=== PATIENT | female | born 1980 | race Caucasian/White ===

== ENCOUNTER 2018-05-16 05:20 | Day surgery (SDC) | payer OTHER ==
[2018-05-15 12:07] LABS: BASOPHILS 0.3 % (0-2); EOSINOPHILS 1.9 % (0-7); HEMOGLOBIN 14.4 g/dL (12-16); IMMATURE GRANULOCYTES 0.2 % (0-5); LYMPHOCYTES 25.5 % (15-50); MCHC 34.3 g/dL (31.0-37.0); MCV 84.7 fL (80.0-100.0); MEAN PLATELET VOLUME 9.8 fL (7.4-10.4); MONOCYTES 5.4 % (2-11); NEUTROPHILS 66.7 % (40-80); PLATELET COUNT 286 10x3/uL (130-400); RBC 4.96 10x6/uL (4.00-5.40); RDW 11.9 % (11.5-14.5); WBC 10.7 10x3/uL (4.8-10.8)
[2018-05-15 12:31] LABS: ALBUMIN 3.1 g/dL (3.4-5.0); BILIRUBIN - TOTAL 0.19 mg/dL (0.2-1.3); CALCIUM 8.7 mg/dL (8.5-10.1); CARBON DIOXIDE 25.3 mmol/L (21.0-32.0); CREATININE - SERUM 0.9 mg/dL (0.6-1.3); POTASSIUM - SERUM 4.3 mmol/L (3.5-5.1); PROTEIN - SERUM 7.2 g/dL (6.4-8.2)
[~2018-05-16] VITALS: Ht 165.1 cm; Wt 99.5 kg
[~2018-05-16 05:20] MED LIST: POLY-VI-SOL W/I50 ML PO; PROPRANOLOL HCL20 MG PO; RED YEAST RICE600 MG PO; SYNTHROID25 MCG PO; TRI-LO-SPRINTEC PO; ZOLOFT50 MG PO
[2018-05-16 11:57] VITALS: BP 122/76
--- NOTE | 2018-05-16 12:00 | NUR ---
Received to room by stretcher from recovery room, pt awake and alert, she is able to move self over to bed without assistance. rates pain at 4/10, scd's bilat per orders and placed on pump. IV to left hand infusing at kvo. Abdomen soft to touch with lab incision noted to be clean and dry. VSS as charted on graphic. Family at bedside. call light in reach with side rails up x 2.
--- NOTE | 2018-05-16 12:12 | NUR ---
denies nausea, large ice water per request.
[2018-05-16 12:22] VITALS: BP 121/77
--- NOTE | 2018-05-16 12:36 | NUR ---
PT'S FAMILY MEMBER TO DESK STATING PT IS HURTING AND REQUESTING PAIN MEDICATION. THIS RN TO ROOM. PT RATING PAIN 7/10 "AT CATHETER", PT REQUESTING CATHETER OUT. PT STATES INCISIONAL PAIN IS 5/10 IN ABD, PRESSURE. FRANCES CATH EMPTIED AND NOTED TO HAVE 150ML CLEAR YELLOW URINE IN UROMETER. FRANCES CATH REMOVED PER BEVERLY VÁZQUEZ. PT ADMIN PRN TORADOL ORDERED. PT INSTRUCTED WILL ALLOW TORADOL TIME TO WORK AND WITH FRANCES CATH OUT, WILL REASSESS PAIN SHORTLY. PT VERBALIZES UNDERSTANDING, AND AGREES SHE DOES NOT WANT TO GET NAUSEATED TAKING STRONGER PAIN MEDS ON AN EMPTY STOMACH. PT FAMILY MEMBERS REMAIN AT BEDSIDE. SRUx2, CL IN REACH. WILL CONT TO MONITOR.
--- NOTE | 2018-05-16 14:38 | NUR ---
PT ABLE TO MOVE SELF TO SITTING UP ON SIDE OF BED WITH NO COMPLAINTS OF NAUSEA OR DIZZINESS. AMB TO BATHROOM AND ABLE TO VOID 400ML WITHOUT COMPLAINTS. LUISA CARE PER SELF WITH WARM WET WASH CLOTHS, LUISA PAD AND MESH PANTIES. BACK TO BED, RATES PAIN AT 6/10 AND ASKING FOR SOMETHING TO EAT. DIET ORDER PLACED AND DIETARY NOTIFIED.
--- NOTE | 2018-05-16 15:00 | NUR ---
DIET TRAY BROUGHT TO ROOM, LARGE CUP OF ICE PER REQEUST. DENIES ANY OTHER NEEDS AT THIS TIME.
--- NOTE | 2018-05-16 16:30 | NUR ---
PT REQUESTING TO D/C HOME, DENIES NAUSEA, RATES PAIN AT 2/10. VOIDED X 3 IN AMOUNTS GREATER THAN 200. DR MASON NOTIFIED FOR ORDERS.
--- NOTE | 2018-05-16 17:10 | NUR ---
DR MASON CALLS UNIT WITH D/C ORDERS, ALSO GIVES ORDER FOR NEUROTIN 300MG 1PO q8hrs x 3days, Mobic 15mg 1po daily and Ultram 50mg 1po every 4-6hrs prn pain. Pt to follow up in clinic as scheduled. Pharmacy choice verified, pt request [facility] [address] [place]. Saline lock removed from left hand, cath noted to be intact. She is amb to bathroom to change clothes.
[2018-05-16] MEDS ORDERED: NEURONTIN 300300 MG (17:19)
[2018-05-16] MEDS ORDERED: ULTRAM50 MG PO (17:20)
[2018-05-16] MEDS ORDERED: MOBIC7.5 MG PO (17:20)
--- NOTE | 2018-05-16 17:45 | NUR ---
Verbal and written discharge instructions gone over with no questions or concerns. Pt states understanding of s/s of infection and what she is to do. denies any questions. Scripts called to [facility] spoke with [facility]. Pt taken out to car by wheelchair home with family.
--- NOTE | 2018-05-23 07:46 | OP ---
PATIENT NAME: COSME CLARK MEDICAL RECORD: [id number] :78 LOCATION:D.OPS ADMISSION DATE: SURGEON: KATTY MASON MD DATE OF OPERATION: 05/16/2018 PREOPERATIVE DIAGNOSES: 1. Dysmenorrhea. 2. Symptomatic fibroids. POSTOPERATIVE DIAGNOSES: 1. Dysmenorrhea. 2. Symptomatic fibroids. 3. Dense pelvic adhesions. SURGEON: Katty Mason MD CUPOLA WORKER: Dr. Buenrostro PROCEDURES: 1. Diagnostic laparoscopy. 2. Lysis of adhesions. 3. Bilateral salpingectomy. 4. Total laparoscopic hysterectomy. 5. Cystectomy. ANESTHESIOLOGIST: Dr. Collazo ANESTHETIC: General. FINDINGS: Uterus is enlarged and with an irregular contour consistent with fibroids. There are dense adhesions from the cornual region down to the bladder flap. These adhesions were on the left side of the uterus. Right ovary and tubes unremarkable. Left ovary has approximately 4-cm cyst. SPECIMENS REMOVED: 1. Bilateral tubes. 2. Uterus with cervix. SPECIMEN DISPOSITION: Pathology. ESTIMATED BLOOD LOSS: Less than or equal to 125 cc. FLUIDS: 1100 cc Lactated Ringer's. URINE OUTPUT: 300 cc of clear urine. COMPLICATIONS: None. DRAIN: Novak to gravity discontinued in women's services. INDICATIONS: The patient is a 37-year-old female with fibroid uterus. The patient has had painful heavy periods and desires definitive therapy. The patient was consented for laparoscopic hysterectomy and any indicated procedure. During assessment, diagnostic portion of the procedure due to the dense adhesions, registered nurse first assistant surgeon required to safely perform this procedure. OPERATIVE REPORT [id number] COSME CLARK DESCRIPTION OF PROCEDURE: After informed consent was assured, the patient was taken to the operating room where anesthetic was obtained without difficulty. The patient was prepped and draped. The uterine manipulator was placed and attention now directed to the abdomen. An incision was made and the trocar inserted. Pneumoperitoneum was developed and the patient was in Trendelenburg position. Dense adhesions on the left side were encountered. Accessory ports were placed in the right and left lower quadrants. Through the left lower quadrant port, registered nurse first assistant surgeon inserted coagulation cutter and takes down adhesions of the omentum. The left tube was removed from its attachments to the adnexa and this with coagulation cutter and then dense adhesions are addressed. With tedious dissection of the adhesions of the left side, the vessels were eventually revealed. The vessels of the left were compressed, coagulated, and . The bladder flap was developed to the midline. Attention was now directed to the right side after the vessels of the left had been coagulated. Tube was now removed from its attachments to the adnexa. The dissection was carried out over the uterine ovarian ligaments and round ligaments. The broad ligament was opened and the bladder flap now fully developed. The posterior leaf was opened. Vessels on the right side compressed, coagulated, and . Using the Harmonic scalpel, the VCare cup is now visualized with an incision from the peritoneum posteriorly. Once this initial colpotomy was performed, dissection of the cervix from the vagina was begun from the 6-3 o'clock position and then 6-12. The remaining 12-3 o'clock positions were dissected out from the right side and the uterus and cervix were pulled into the abdomen. Pneumoperitoneum remains and the pelvis was irrigated and irrigant removed. Adequate hemostasis is noted. Uterus was now removed and the gas discontinued. The uterosacral ligaments at the vaginal cuff grasped with Allis clamps. A Vicryl stitch was placed through here. Once this had been performed, the stitch was placed on gentle traction with a hemostat and the cuff is closed in an anterior posterior fashion with interrupted stitches. After closure of the cuff, pneumoperitoneum was reestablished and hemostasis again was assured. Pelvis was irrigated, irrigant removed and trocars removed under visualization. Pneumoperitoneum was released and all sites closed with subcuticular stitch. Sponge, lap, and needle counts correct times 2. TRANSINT:[id number] Voice Confirmation ID: [id number] DOCUMENT ID: [id number] KATTY MASON MD at 0746 CC: [id number] DICTATION DATE: 05/16/18 1055 OIL FURNACE INSTALLER: 05/16/18 1118 [facility] 05/16/18 [id number] [place] [address]
== END 2018-05-16 18:00 | disposition home or self-care (01) ==
LOC: D.OPS 05:20 → D.LD 12:00 → D.PAN 12:00 → D.OPS 12:00
PROVIDERS: Obstetrics & Gynecology
DX: D25.0 Submucous leiomyoma of uterus (principal); N73.6 Female pelvic peritoneal adhesions (postinfective); N94.6 Dysmenorrhea, unspecified; Z01.812 Encounter for preprocedural laboratory examination